=== PATIENT | male | born 2005 | race Caucasian/White ===

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

== ENCOUNTER 2023-03-28 10:48 | Emergency (ER) | payer OTHER, SELFPAY ==
[2023-03-28 11:03] VITALS: BP 124/70; PULSE 85; RESP 16; TEMP 37.2; O2SAT 99
--- NOTE | 2023-03-28 11:26 | ED.NAVMDI ---
HPI - Nausea/Vomiting/Diarrhea General Chief complaint: Nausea/Vomiting/Diarrhea Stated complaint: throwing up,cough Time Seen by Provider: 03/28/23 11:21 Source: patient Mode of arrival: ambulatory Limitations: no limitations History of Present Illness HPI Narrative: Patient presents today complaining of vomiting since 12/29 this morning. States he has had 13-15 episodes of vomiting since this morning. States he has tried to eat and drink between each vomiting episode. Last episode was 1 hour prior to arrival. He has also had 1 episode of diarrhea. Denies known sick contacts, fever. Reports associated symptoms include dull epigastric pain and sweats. Related Data Home Medications Medication Instructions Recorded Confirmed cetirizine 10 mg tablet 10 mg PO DAILY 01/31/20 03/28/23 citalopram 40 mg tablet 40 mg PO DAILY 01/31/20 03/28/23 bhepqd-ekkviqsa-hhdhknh 3 cap PO DIRECTED 01/31/20 03/28/23 6,000-19,000-30,000 unit capsule,delayed rel (Creon) clonidine HCl 0.1 mg tablet 0.1 mg PO BID 10/27/22 03/28/23 elexacaftor 100 mg-tezacaf 1 ea PO QHS 10/27/22 03/28/23 50mg-ivacaf 75mg(d)/ivacaf 150mg(n) tablets (Trikafta) famotidine 20 mg tablet 20 mg PO DAILY 10/27/22 03/28/23 trazodone 100 mg tablet 200 mg PO HS PRN Insomnia 10/27/22 03/28/23 Allergies Allergy/AdvReac Type Severity Reaction Status Date / Time Penicillins Allergy Mild HIVES Verified 10/27/22 11:43 Sulfa (Sulfonamide Allergy Mild HIVES Verified 10/27/22 11:43 Antibiotics) AMOXICILLIN TRIHYDRATE Allergy Mild HIVES Uncoded 08/19/21 11:44 POTASSIUM CLAVULANATE Allergy Mild HIVES Uncoded 08/19/21 11:44 Review of Systems Review of Systems: CONSTITUTIONAL: Denies body aches, fever, chills, or sweats. EYES: Denies visual changes, redness, or discharge. ENT: Denies rhinorrhea, congestion, sore throat, or otalgia. CARDIOVASCULAR: Denies chest pain, palpitations, or edema. RESPIRATORY: Denies cough or dyspnea. GASTROINTESTINAL: Denies abdominal pain. + nausea, vomiting, diarrhea GENITOURINARY: Denies dysuria or hematuria. SKIN: Denies rash, itching, or wounds. MUSCULOSKELETAL: Denies back pain, joint pain, or myalgia. NEUROLOGIC: Denies headache, numbness, tingling, or weakness. PSYCH: Denies depression or anxiety. [facility] Past Medical History Medical History (Updated 03/28/23 @ 12:16 by Radha Richardson, SAMREEN, ) Anxiety and depression Cystic fibrosis Surgical History Surgical History Hx of sinus surgery Family History Family History Grandparent Heart disease Social History Social History Gender identity (if verbalized by the patient): Male Comments At time of signature, I have reviewed and agree with nursing past medical, surgical, social and family history unless otherwise noted. Please see nursing chart for further information. There is no relevant family history pertinent to the presenting complaint Exam Narrative: GENERAL: Well-appearing, well-nourished, and in no acute distress. HEAD: Normocephalic, atraumatic. EYES: EOMI. No redness or drainage. Conjunctivae normal. ENT: Mucous membranes pink and moist. NECK: Normal AROM. CHEST: No respiratory distress. Slight expiratory wheeze to the left upper and lower lobes, otherwise clear HEART: Regular rate and rhythm. No murmur appreciated. Normal peripheral pulses. ABDOMEN: Soft, nontender, nondistended, normal active bowel sounds. MUSCULOSKELETAL: No bony tenderness. EXTREMITIES: Normal range of motion. No edema. SKIN: Warm, dry, no rash. Capillary refill normal. Normal skin turgor. NEURO: No focal deficits. Alert and oriented x3. Gait steady. PSYCH: Normal affect. No signs of depression or anxiety. Course Course Emergency Course: 1213- Patient feeling better after Zo
[2023-03-28] MEDS: ONDANSETRON HCL ODT 4 MG TABLET 8 MG SUBLINGUAL (11:28)
== END 2023-03-28 12:20 | disposition home or self-care (01) ==
PROVIDERS: Emergency Provider Nurse Practitioner; PCP Pediatrics
DX: R11.2 Nausea with vomiting, unspecified (principal); R19.7 Diarrhea, unspecified; E84.9 Cystic fibrosis, unspecified; F41.9 Anxiety disorder, unspecified; F32.A Depression, unspecified
CPT/HCPCS: 99213; A9270; G0463

== ENCOUNTER 2023-06-12 13:28 | Emergency (ER) | payer OTHER, SELFPAY ==
--- NOTE | ~2023-06-12 | XR_ITS ---
EXAMINATION: XR chest 2V 06/12/2023 13:57 INDICATION: Cough. Cystic fibrosis. Chest pain. PROCEDURE: 2 view chest COMPARISON: 01/31/2020 FINDINGS: The lungs are clear. The cardiomediastinal silhouette is within normal limits. There are no pleural effusions. There is no pneumothorax suspected. IMPRESSION: 1: NO ACUTE CARDIOPULMONARY DISEASE. Reviewed, dictated and finalized at location B. MARKETING INTERN
[2023-06-12 13:35] VITALS: BP 143/56; PULSE 87; RESP 20; TEMP 36.9; O2SAT 99
--- NOTE | 2023-06-12 13:43 | ECG_ITS ---
Measurements Intervals [place] Rate: 89 P: 58 MS: 120 QRS: 73 QRSD: 94 T: 32 QT: 329 QTc: 402 Interpretive Statements SINUS RHYTHM WITH SINUS ARRHYTHMIA NONSPECIFIC ST & T-WAVE ABNORMALITY COMPARED TO ECG 01/31/2020 17:01:54 SINUS ARRHYTHMIA NOW PRESENT Electronically Signed On 06-16-2023 14:18:57 DRAPERY AND UPHOLSTERY ESTIMATOR by Margarito Noriega M.D.
--- NOTE | 2023-06-12 14:28 | ED.URI ---
HPI - URI/Sore Throat General Chief Complaint: Chest Pain Stated Complaint: Chest Wall Pain Time Seen by Provider: 06/12/23 14:22 Source: patient and RN notes reviewed Mode of arrival: ambulatory Limitations: no limitations History of Present Illness HPI Narrative: 17-year-old male presents with concern for chest pain, shortness of breath, cough. He has history of cystic fibrosis, he has an albuterol inhaler at home but he has not been home to use it. He reports he has been having some runny nose, stuffy nose, scratchy dry throat. Reports nausea and vomiting. He denies known sick contacts. MD elicited complaint: cough and sore throat Related Data Home Medications Medication Instructions Recorded Confirmed cetirizine 10 mg tablet 10 mg PO DAILY 01/31/20 06/12/23 viapxv-kijmviqr-btorohk 3 cap PO DIRECTED 01/31/20 06/12/23 6,000-19,000-30,000 unit capsule,delayed rel (Creon) clonidine HCl 0.1 mg tablet 0.1 mg PO BID 10/27/22 06/12/23 elexacaftor 100 mg-tezacaf 1 ea PO QHS 10/27/22 06/12/23 50mg-ivacaf 75mg(d)/ivacaf 150mg(n) tablets (Trikafta) famotidine 20 mg tablet 20 mg PO DAILY 10/27/22 06/12/23 trazodone 100 mg tablet 200 mg PO HS PRN Insomnia 10/27/22 06/12/23 Allergies Allergy/AdvReac Type Severity Reaction Status Date / Time Penicillins Allergy Mild HIVES Verified 10/27/22 11:43 Sulfa (Sulfonamide Allergy Mild HIVES Verified 10/27/22 11:43 Antibiotics) AMOXICILLIN TRIHYDRATE Allergy Mild HIVES Uncoded 08/19/21 11:44 POTASSIUM CLAVULANATE Allergy Mild HIVES Uncoded 08/19/21 11:44 Review of Systems Review of Systems: CONSTITUTIONAL: Reports malaise, denies fever. EYES: Denies visual changes, redness, or discharge. ENT: Reports rhinorrhea, congestion, dry scratchy throat. Denies sinus pain, otalgia and sore throat. CARDIOVASCULAR: Denies chest pain, palpitations, or edema. RESPIRATORY: Reports cough, chest pain, dyspnea. GASTROINTESTINAL: Denies abdominal pain, nausea, vomiting, diarrhea SKIN: Denies rash or itching. MUSCULOSKELETAL: Denies myalgia. NEUROLOGIC: Reports headache. All systems reviewed & are unremarkable except as noted in HPI and below PMFSH Past Medical History Medical History (Updated 06/12/23 @ 14:47 by Pauline Barney NP) Anxiety and depression Cystic fibrosis Surgical History Surgical History Hx of sinus surgery Family History Family History Grandparent Heart disease Social History Social History Gender identity (if verbalized by the patient): Male Comments At time of signature, agree with nursing past medical, surgical, social and family history. There is no relevant family history pertinent to the presenting complaint Exam Narrative: GENERAL: Well-appearing, well-nourished, and in no acute distress. HEAD: Normocephalic EYES: PERRLA, conjunctivae clear ENT: Nares clear, clear discharge. Mucous membranes moist. TM pearly raymond with sharp light reflex bilaterally; no tragal tenderness. Oropharynx not erythematous without lesions. Tonsils not enlarged and without exudate, no drooling, no hoarseness, no trismus, uvula midline. NECK: Supple. No lymphadenopathy CHEST: Clear to auscultation, breath sounds equal. No wheezing, rhonchi, rales, or stridor. No respiratory distress, speaks in full sentences. Cough noted HEART: Regular rate and rhythm. No murmur heard. SKIN: Warm, dry, no rash. NEURO: Alert and oriented x3. PSYCH: Normal mood and affect Course Course Emergency Course: Patient is aware of diagnosis, understands and agrees to treatment plan. Anticipatory guidance given. Patient agrees to follow-up as directed and is aware of reasons to seek care at the emergency department. Portions of this record may have been created with voice recognition software Level
== END 2023-06-12 14:55 | disposition home or self-care (01) ==
PROVIDERS: Emergency Provider Nurse Practitioner; PCP Pediatrics
DX: J06.9 Acute upper respiratory infection, unspecified (principal); R05.9 Cough, unspecified; F41.9 Anxiety disorder, unspecified; F32.A Depression, unspecified; E84.9 Cystic fibrosis, unspecified
CPT/HCPCS: 71046; 87081; 87880; 93005; 99213; G0463

== ENCOUNTER 2023-08-28 12:15 | Emergency (ER) | payer OTHER, SELFPAY ==
--- NOTE | 2023-08-28 12:18 | ED.URI ---
HPI - URI/Sore Throat General Chief Complaint: Upper Respiratory Infection Stated Complaint: sore throat, strep exposure Time Seen by Provider: 08/28/23 12:17 Source: patient Mode of arrival: ambulatory Limitations: no limitations History of Present Illness HPI Narrative: Ashu is a 17-year-old male patient presenting to the clinic today with complaints of sore throat times 3-4 days. He reports he has had exposure to strep. MD elicited complaint: sore throat and nasal congestion Related Data Home Medications Medication Instructions Recorded Confirmed cetirizine 10 mg tablet 10 mg PO DAILY 01/31/20 06/12/23 rndsyf-ozccccoa-ekzyjjw 3 cap PO DIRECTED 01/31/20 06/12/23 6,000-19,000-30,000 unit capsule,delayed rel (Creon) clonidine HCl 0.1 mg tablet 0.1 mg PO BID 10/27/22 06/12/23 famotidine 20 mg tablet 20 mg PO DAILY 10/27/22 06/12/23 Allergies Allergy/AdvReac Type Severity Reaction Status Date / Time Penicillins Allergy Mild HIVES Verified 08/28/23 12:26 Sulfa (Sulfonamide Allergy Mild HIVES Verified 08/28/23 12:26 Antibiotics) AMOXICILLIN TRIHYDRATE Allergy Mild HIVES Uncoded 08/28/23 12:26 POTASSIUM CLAVULANATE Allergy Mild HIVES Uncoded 08/28/23 12:26 Review of Systems Review of Systems: Pertinent positives per HPI. Patient denies any fever, chills, rash, headache, visual changes, dizziness, cough, shortness of breath, chest pain, palpitations, nausea, vomiting, diarrhea, constipation, abdominal pain, or any urinary issues. [facility] Past Medical History Medical History Anxiety and depression Cystic fibrosis Surgical History Surgical History Hx of sinus surgery Family History Family History Grandparent Heart disease Social History Social History Gender identity (if verbalized by the patient): Male Comments At the time of my signature, I reviewed and agree with the nursing past medical, surgical, social, and family history. There is no relevant family history pertinent to the patient complaint. Exam Narrative: General: Well-developed, well nourished, in no apparent distress Head: Normocephalic, atraumatic Eyes: Pupils equally round and reactive to light bilaterally, EOM intact, sclera and conjunctive clear, no discharge, lids normal Ears: TMs intact and clear, ear canals clear, no drainage, grossly hearing normal. Nose: Nares patent, no discharge, no inflammation, no sinus tenderness. Mouth: Oral pharynx red without lesions or masses, good dentition, MMM. Neck: Supple, trachea midline, mild enlargement of anterior cervical nodes, no thyroid masses or goiter palpable. Cardio: Regular rate and rhythm, s1 and s2 normal, no murmur appreciated. Resp: Clear to auscultation bilaterally, no rhonchi, rales, wheezing or rubs Course Course Emergency Course: Portions of this record may have been created with voice recognition software. Level of Care: Express Care Visit Vital Signs Vital signs: Vital signs reviewed MDM - URI/Sore Throat MDM Narrative Medical decision making narrative: At the time of visit patient is resting comfortably on the exam table. Patient appears to be nontoxic. Labs: Strep test was positive in the clinic today. Plan: I suspect patient has strep pharyngitis. Prescription for azithromycin was sent to the pharmacy. Supportive measures were discussed with the patient and they voiced understanding discharge instructions and agrees to treatment plan. Return precautions reviewed Differential Diagnosis Differential diagnosis: Likely upper respiratory infection, otitis media, sinusitis, viral infection, bronchitis, influenza, pharyngitis and other (COVID) Discharge Plan Discharge Clinical Impression: Acute streptococc
[2023-08-28 12:28] VITALS: BP 104/56; PULSE 115; RESP 16; TEMP 37.2; O2SAT 99
== END 2023-08-28 12:46 | disposition home or self-care (01) ==
PROVIDERS: Emergency Provider Nurse Practitioner Family; PCP Pediatrics Adolescent Medicine
DX: J02.0 Streptococcal pharyngitis (principal); E84.9 Cystic fibrosis, unspecified
CPT/HCPCS: 87880; 99213; G0463

== ENCOUNTER 2024-03-25 09:01 | Emergency (ER) | payer OTHER, SELFPAY ==
[2024-03-25 09:11] VITALS: BP 128/84; PULSE 114; RESP 16; TEMP 36.9; O2SAT 99
--- NOTE | 2024-03-25 09:22 | ED.EAR ---
HPI - Ear Problem General Chief complaint: Ear Stated complaint: right ear pain,dizzy,decreased hearing Time Seen by Provider: 03/25/24 09:22 Source: patient Mode of arrival: ambulatory Limitations: no limitations History of Present Illness HPI Narrative: 18-year-old male presents with complaint runny nose, nasal congestion, right ear pain for 3-4 days. Afebrile. Take Zyrtec daily. Denies sinus pressure. No coughing. All systems reviewed and negative except as noted above. Related Data Home Medications Medication Instructions Recorded Confirmed cetirizine 10 mg tablet 10 mg PO DAILY 01/31/20 06/12/23 cxltlx-ohqequcs-fjwglal 3 cap PO DIRECTED 01/31/20 06/12/23 6,000-19,000-30,000 unit capsule,delayed rel (Creon) clonidine HCl 0.1 mg tablet 0.1 mg PO BID 10/27/22 06/12/23 famotidine 20 mg tablet 20 mg PO DAILY 10/27/22 06/12/23 Allergies Allergy/AdvReac Type Severity Reaction Status Date / Time Penicillins Allergy Mild HIVES Verified 08/28/23 12:26 Sulfa (Sulfonamide Allergy Mild HIVES Verified 08/28/23 12:26 Antibiotics) AMOXICILLIN TRIHYDRATE Allergy Mild HIVES Uncoded 08/28/23 12:26 POTASSIUM CLAVULANATE Allergy Mild HIVES Uncoded 08/28/23 12:26 Review of Systems Review of Systems: CONSTITUTIONAL: Denies fever, chills, or sweats. EYES: Denies visual changes, redness, or discharge. ENT: Reports rhinorrhea, congestion, right ear pain. Denies sore throat CARDIOVASCULAR: Denies chest pain, palpitations, or edema. RESPIRATORY: Denies cough or dyspnea. GASTROINTESTINAL: Denies abdominal pain, nausea, vomiting, or diarrhea. GENITOURINARY: Denies dysuria or hematuria. SKIN: Denies rash or itching. MUSCULOSKELETAL: Denies back pain, joint pain, or myalgia. NEUROLOGIC: Denies headache, numbness, or weakness. PSYCHIATRIC: Denies anxiety or depression. All other systems reviewed are negative, except as documented in HPI. [facility] Past Medical History Medical History (Updated 03/25/24 @ 09:32 by Peace Chaudhry NP) Anxiety and depression Cystic fibrosis Surgical History Surgical History Hx of sinus surgery Family History Family History Grandparent Heart disease Social History Social History Gender identity (if verbalized by the patient): Male Comments At time of signature, agree with nursing past medical, surgical, social and family history. There is no relevant family history pertinent to the presenting complaint. Exam Narrative: GENERAL: This is a well-nourished, well-developed patient, in no apparent distress. HEAD: normocephalic, atraumatic. EYES: PERRL. Sclera clear/white. Vision is grossly intact. EARS: External ears normal, auditory canals clear and without drainage, erythema, bulging, fluid to right TM. Left TM is normal. No perforation bilaterally. Hearing grossly intact. NOSE: External nose normal with clear nasal drainage, mild congestion, mild erythema to bilateral nares THROAT: Mucous membranes moist, clear postnasal drainage NECK: Neck supple, non-tender without lymphadenopathy, masses or thyromegaly. CARDIOVASCULAR: Regular rate and rhythm without murmurs, gallops, or rubs. RESPIRATORY: Clear to auscultation. Breath sounds equal bilaterally. No wheezes, rales, or rhonchi. SKIN: warm, Dry, intact with no suspicious lesions or rash, good texture and turgor. NEURO: awake, alert, and oriented to person, place and time. There were no obvious focal neurologic abnormalities. EXTREMITIES: No joint tenderness, effusion, or edema noted. Course Course Level of Care: Express Care Visit Vital Signs Vital signs: Vital Signs Temperature 36.9 C 03/25/24 09:11 Pulse Rate 114 H 03/25/24 09:11 Respiratory Rate 16 03/25/24 09:11 Blood Pressure 128/84 03/25/24 09:11 Pulse O
== END 2024-03-25 09:37 | disposition home or self-care (01) ==
PROVIDERS: Emergency Provider Nurse Practitioner Family; PCP Pediatrics Adolescent Medicine
DX: H66.91 Otitis media, unspecified, right ear (principal); J01.90 Acute sinusitis, unspecified; E84.9 Cystic fibrosis, unspecified
CPT/HCPCS: 99213; G0463

== ENCOUNTER 2024-10-06 17:52 | Emergency (ER) | payer OTHER, SELFPAY ==
[2024-10-06 18:01] VITALS: BP 131/77; PULSE 111; RESP 18; TEMP 36.8; O2SAT 99
--- NOTE | 2024-10-06 18:15 | ED.URI ---
HPI - URI/Sore Throat General Chief Complaint: Upper Respiratory Infection Stated Complaint: Cough Time Seen by Provider: 10/06/24 18:20 Source: patient, RN notes reviewed and old records reviewed Mode of arrival: ambulatory Limitations: no limitations History of Present Illness HPI Narrative: 18-year-old male presents to the [facility] with complaints of a cough for 2-3 weeks. States that he did see his cystic fibrosis doctors 1 month ago. Reports that he had did column and was told that it was ?just allergies. ? Patient comes in today with productive cough Related Data Home Medications ?Medication ?Instructions ?Recorded ?Confirmed ?Last Taken ?Type cetirizine 10 mg tablet 10 mg PO DAILY 01/31/20 03/25/24 Unknown History orwvyz-cvetdaoh-lopccok 3 cap PO DIRECTED 01/31/20 03/25/24 Unknown History 6,000-19,000-30,000 unit capsule,delayed rel (Creon) clonidine HCl 0.1 mg tablet 0.1 mg PO BID 10/27/22 03/25/24 Unknown History famotidine 20 mg tablet 20 mg PO DAILY 10/27/22 03/25/24 Unknown History elexacaftor 100 mg-tezacaf See Rx Instructions .Route .COMPLEX 03/25/24 03/25/24 Unknown History 50mg-ivacaf 75mg(d)/ivacaf 150mg(n) tablets (Trikafta) Allergies Allergy/AdvReac Type Severity Reaction Status Date / Time Penicillins Allergy Mild HIVES Verified 10/06/24 18:28 Sulfa (Sulfonamide Allergy Mild HIVES Verified 10/06/24 18:28 Antibiotics) AMOXICILLIN TRIHYDRATE Allergy Mild HIVES Uncoded 10/06/24 18:28 POTASSIUM CLAVULANATE Allergy Mild HIVES Uncoded 10/06/24 18:28 Review of Systems Review of Systems: All systems reviewed & are unremarkable except as noted in HPI and below Constitutional: Constitutional: Reports no additional constitutional complaints ENT: Reports system reviewed and no additional complaints, except as documented Cardiovascular: Cardiovascular: Reports no additional cardiovascular complaints, Denies chest pain and Denies dyspnea Respiratory: Respiratory: Reports as per HPI, Denies chest congestion, Reports cough, Denies hemoptysis, Reports excessive phlegm production and Denies dyspnea Musculoskeletal: Musculoskeletal: Reports no additional musculoskeletal complaints Integumentary/Breasts: Skin/Breast: Reports system reviewed and no additional complaints, except as docu [facility] Past Medical History Medical History (Updated 10/06/24 @ 19:35 by Pauline Luna APRN) Anxiety and depression Cystic fibrosis Surgical History Surgical History Hx of sinus surgery Family History Family History Grandparent Heart disease Social History Social History Gender identity (if verbalized by the patient): Male Comments At the time of my signature, I reviewed and agree with the nursing past medical, surgical, social, and family history. There is no relevant family history pertinent to the patient complaint. Exam Const: General: cooperative, comfortable, no acute distress, well developed, alert, poor hygiene and well nourished Nutritional Appearance: well nourished Orientation/consciousness: patient oriented x3 Limitations: no limitations HENMT: Head: normal to inspection Eyes: General: appearance normal, both eyes and all related structures Alignment and Position: alignment normal Neck: Neck: normal visual inspection, full ROM, no lymphadenopathy and no meningeal signs Chest: Chest palpation & inspection: normal inspection of the chest Resp: Effort & Inspection: normal respiratory effort and able to speak in complete sentences Auscultation: clear to auscultation bilaterally, no crackles, no rales, no rhonchi, no wheezes and diminished lung sounds bilateral in the lower lung ramírez Cardio: Rate: regular rate Skin: General skin exam: normal color and no rashes or lesions noted Neuro: General: patient oriented x3, gait normal, moves all extremities and no meningeal signs Cognition (Neuro): normal cognition Speech: normal speech Gait exam (Neuro): Normal gait present Extrem: General: normal to inspection, full ROM, capillary refill normal and normal gait Psych: Appearance: grossly normal and well kempt Mental Status: mental status grossly normal Speech and movement: Normal speech and movement present and Clear speech present Affect: normal affect Attitude: cooperative Course Course Level of Care: Express Care Visit Vital Signs Vital signs: Vital Signs Temperature 98.3 F 10/06/24 18:01 Pulse Rate 111 H 10/06/24 18:01 Respiratory Rate 18 10/06/24 18:01 Blood Pressure 131/77 10/06/24 18:01 Pulse Oximetry 99 10/06/24 18:01 Oxygen Delivery Room Air 10/06/24 18:01 Temperature 98.3 F 10/06/24 18:01 Pulse Rate 111 H 10/06/24 18:01 Respiratory Rate 18 10/06/24 18:01 Blood Pressure 131/77 10/06/24 18:01 Pulse Oximetry 99 10/06/24 18:20 Oxygen Delivery Room Air 10/06/24 18:20 Reviewed MDM - URI/Sore Throat MDM Narrative Medical decision making narrative: Patient sitting exam room. Nontoxic, vitals stable Patient with through 2-3 week history of productive cough, history of cystic fibrosis, will cover with antibiotic Encourage patient strongly to follow up with primary care provider or cystic fibrosis provider for further evaluation Discharge instructions reviewed with patient, as well as provided in writing per nursing staff. The instructions also include specific and strict return/GO TO THE ER as well as f/u information. All questions have been answered, and the patient deny any further questions with discharge and discharge plan. Some parts of this dictation were generated by voice recognition software and may contain typographical and/or grammatical inaccuracies. Differential Diagnosis Differential diagnosis: Likely upper respiratory infection, otitis media, sinusitis, viral infection, bronchitis and influenza Critical Care Time Critical Care Time Critical Care Time: No Discharge Plan Discharge Clinical Impression: Hx of cystic fibrosis Cough Qualifiers: Cough type: acute Qualified Code(s): R05.1 - Acute cough Patient Disposition: Home Condition: Stable Instructions: Antibiotic Form, Acute Cough (ED) Additional Instructions: Follow-up with your cystic fibrosis doctor this week Take antibiotic as prescribed It is recommended you continue to use allergy medication for the postnasal drainage For worsening symptoms please go to the ER Patient Language: [place] Prescriptions: New azithromycin 250 mg tablet See Rx Instructions .ROUTE .COMPLEX Qty: 6 0RF Rx Instructions: take 500 mg today (day 1), then 250 mg for 4 days (days 2-5) No Action cetirizine 10 mg Tablet 10 mg PO DAILY Creon 6,000-19,000 -30,000 unit Capsule,Delayed Release(Dr/Ec) 3 cap PO DIRECTED azithromycin 250 mg tablet See Rx Instructions .ROUTE .COMPLEX Qty: 6 0RF Rx Instructions: For 250 mg dose pack: take 500 mg today (day 1), then 250 mg for 4 days (days 2-5) fluticasone propionate [Flonase Allergy Relief] 50 mcg/actuation spray,suspension 1 spray intranasal BID Qty: 16 0RF Rx Instructions: administer into each nostril Trikafta 100-50-75 mg(d) /150 mg (n) tablets, sequential See Rx Instructions .ROUTE .COMPLEX Rx Instructions: Rx clonidine HCl 0.1 mg Tablet 0.1 mg PO BID famotidine 20 mg Tablet 20 mg PO DAILY Follow-up/Referrals: Ariadna,Aneta Bartlett MD [Primary Care Provider] - 2 Weeks ([facility] Time of Disposition: 18:29
[2024-10-06 18:20] VITALS: O2SAT 99
== END 2024-10-06 18:33 | disposition home or self-care (01) ==
PROVIDERS: Emergency Provider Nurse Practitioner; PCP Pediatrics Adolescent Medicine
DX: E84.9 Cystic fibrosis, unspecified (principal); R05.1 Acute cough
CPT/HCPCS: 99213; G0463

== ENCOUNTER 2025-02-19 17:22 | Emergency (ER) | payer OTHER, SELFPAY ==
[2025-02-19 17:32] VITALS: BP 105/71; PULSE 102; RESP 20; TEMP 36.8; O2SAT 100
--- NOTE | 2025-02-19 17:39 | ED.EAR ---
HPI - Ear Problem General Chief complaint: Ear Stated complaint: right ear pain/neck pain Time Seen by Provider: 02/19/25 17:45 Source: patient and RN notes reviewed Mode of arrival: ambulatory Limitations: no limitations History of Present Illness HPI Narrative: 19-year-old male presents with concern for pain starts below the right ear and the right jaw and radiates towards the ear. He denies hearing changes or drainage from the ear. He denies cold symptoms. He denies redness, swelling, warmth. Denies malaise or fever. Denies dental pain or problems swelling. Reports occasional jaw clicking. MD Complaint: ear pain Related Data Home Medications ?Medication ?Instructions ?Recorded ?Confirmed ?Last Taken ?Type cetirizine 10 mg tablet 10 mg PO DAILY 01/31/20 03/25/24 Unknown History mxdzoy-phzybegz-iorrkrx 3 cap PO DIRECTED 01/31/20 03/25/24 Unknown History 6,000-19,000-30,000 unit capsule,delayed rel (Creon) clonidine HCl 0.1 mg tablet 0.1 mg PO BID 10/27/22 03/25/24 Unknown History famotidine 20 mg tablet 20 mg PO DAILY 10/27/22 03/25/24 Unknown History elexacaftor 100 mg-tezacaf See Rx Instructions .Route .COMPLEX 03/25/24 03/25/24 Unknown History 50mg-ivacaf 75mg(d)/ivacaf 150mg(n) tablets (Trikafta) dornase julianne 1 mg/mL solution for mg inhalation 02/19/25 Unknown History inhalation (Pulmozyme) Allergies Allergy/AdvReac Type Severity Reaction Status Date / Time Penicillins Allergy Mild HIVES Verified 02/19/25 17:33 Sulfa (Sulfonamide Allergy Mild HIVES Verified 02/19/25 17:33 Antibiotics) amoxicillin (From Augmentin) Allergy rash Verified 02/19/25 17:33 clavulanic acid (From Allergy rash Verified 02/19/25 17:33 Augmentin) AMOXICILLIN TRIHYDRATE Allergy Mild HIVES Uncoded 02/19/25 17:33 POTASSIUM CLAVULANATE Allergy Mild HIVES Uncoded 02/19/25 17:33 Review of Systems Review of Systems: CONSTITUTIONAL: Denies malaise, chills, sweats, or fever. EYES: Denies visual changes, redness, or discharge. ENT: Denies rhinorrhea, congestion, sinus pain, and sore throat. Reports right jaw pain, below the jaw pain radiating towards the right ear CARDIOVASCULAR: Denies chest pain, palpitations, or edema. RESPIRATORY: Denies cough. Denies dyspnea. GASTROINTESTINAL: Denies abdominal pain, nausea, vomiting, diarrhea SKIN: Denies rash or itching. MUSCULOSKELETAL: Denies myalgia. NEUROLOGIC: Denies headache. All systems reviewed & are unremarkable except as noted in HPI and below PMFSH Past Medical History Medical History (Updated 02/19/25 @ 17:44 by Pauline Barney NP) Anxiety and depression Cystic fibrosis Surgical History Surgical History Hx of sinus surgery Family History Family History Grandparent Heart disease Social History Social History Gender identity (if verbalized by the patient): Male Comments At time of signature, agree with nursing past medical, surgical, social and family history. There is no relevant family history pertinent to the presenting complaint Exam Narrative: GENERAL: Well-appearing, well-nourished, and in no acute distress. HEAD: Normocephalic EYES: PERRLA, conjunctivae clear ENT: Nares clear, no discharge. Mucous membranes moist. TM pearly raymond with sharp light reflex bilaterally; no tragal tenderness, EAC unremarkable. No post or pre-auricular erythema, induration, or warmth noted. Oropharynx not erythematous without lesions. Tonsils not enlarged and without exudate, no drooling, no hoarseness, no trismus, uvula midline. TMJ tenderness NECK: Supple. No lymphadenopathy CHEST: Clear to auscultation, breath sounds equal. No wheezing, rhonchi, rales, or stridor. No respiratory distress, speaks in full sentences. HEART: Regular rate and rhythm. No murmur heard. SKIN: Warm, dry, no rash. NEURO: Alert and oriented x3. PSYCH: Normal mood and affect Course Course Emergency Course: Patient is aware of diagnosis, understands and agrees to treatment plan. Anticipatory guidance given. Patient agrees to follow-up as directed and is aware of reasons to seek care at the emergency department. Portions of this record may have been created with voice recognition software Level of Care: Express Care Visit Vital Signs Vital signs: Vital Signs Temperature 98.3 F 02/19/25 17:32 Pulse Rate 102 H 02/19/25 17:32 Respiratory Rate 20 02/19/25 17:32 Blood Pressure 105/71 02/19/25 17:32 Pulse Oximetry 100 02/19/25 17:32 Oxygen Delivery Room Air 02/19/25 17:32 Temperature 98.3 F 02/19/25 17:32 Pulse Rate 102 H 02/19/25 17:32 Respiratory Rate 20 02/19/25 17:32 Blood Pressure 105/71 02/19/25 17:32 Pulse Oximetry 100 02/19/25 17:32 Oxygen Delivery Room Air 02/19/25 17:32 Reviewed. Medical Decision Making MDM Narrative Medical decision making narrative: I evaluated this in the [facility] care. History is obtained from patient who is an independent historian and physical exam was performed.? Available medical records were reviewed. ? Exam findings and relevant testing show no acute concerns or changes; patient is non-toxic appearing and is in no distress. Differential diagnosis considered: Walden virus, strep pharyngitis, allergic rhinitis, upper respiratory tract infection, sinusitis, rhinosinusitis, nasopharyngitis. viral pharyngitis, otitis media, otitis externa, otitis effusion, pre/post auricular cellulitis, mastoiditis, cerumen impaction, foreign body. Exam findings show no acute concerns or changes; patient is non-toxic appearing and is in no distress. Patient is appropriate for outpatient treatment and follow-up. ? Differential diagnosis and treatment plan were discussed with the patient. Patient agrees with discussion and after shared medical decision making agrees with plan of care. All questions were answered to the patient's satisfaction. Patient is appropriate for outpatient treatment and follow-up. Vital Signs Vital Signs: Vital Signs Temperature 98.3 F 02/19/25 17:32 Pulse Rate 102 H 02/19/25 17:32 Respiratory Rate 02/19/25 17:32 Blood Pressure 105/71 02/19/25 17:32 Pulse Oximetry 100 02/19/25 17:32 Oxygen Delivery Room Air 02/19/25 17:32 Temperature 98.3 F 02/19/25 17:32 Pulse Rate 102 H 02/19/25 17:32 Respiratory Rate 20 02/19/25 17:32 Blood Pressure 105/71 02/19/25 17:32 Pulse Oximetry 100 02/19/25 17:32 Oxygen Delivery Room Air 02/19/25 17:32 Critical Care Time Critical Care Time Critical Care Time: No Discharge Plan Discharge Clinical Impression: Jaw pain Patient Disposition: Home Condition: Stable Instructions: Temporomandibular Disorder (ED) Additional Instructions: -Apply moist heat to affected side first thing in the morning and before meals for 5-10 minutes. -After applying heat massage the painful area for 2-3 minutes -After massage. apply ice or cool compress for 5-10 minutes. Avoid chewy foods. chewing gum, chewing ice, yawning, and chewing non-food items. Take small bites Take prednisone as directed You may also take Tylenol. Follow-up with your dentist or PCP for further evaluation. If you have any urgent concerns, please go to the ER. Patient Language: [place]ian Prescriptions: New prednisone 20 mg tablet 40 mg PO DAILY 5 Days Qty: 10 0RF No Action cetirizine 10 mg Tablet 10 mg PO DAILY Creon 6,000-19,000 -30,000 unit Capsule,Delayed Release(Dr/Ec) 3 cap PO DIRECTED Pulmozyme 1 mg/mL solution INHALATION fluticasone propionate [Flonase Allergy Relief] 50 mcg/actuation spray,suspension 1 spray intranasal BID Qty: 16 0RF Rx Instructions: administer into each nostril Trikafta 100-50-75 mg(d) /150 mg (n) tablets, sequential See Rx Instructions .ROUTE .COMPLEX Rx Instructions: Rx clonidine HCl 0.1 mg Tablet 0.1 mg PO BID famotidine 20 mg Tablet 20 mg PO DAILY Follow-up/Referrals: Salomon,MD Anmol [Primary Care Provider] Time of Disposition: 17:45
== END 2025-02-19 17:50 | disposition home or self-care (01) ==
PROVIDERS: Emergency Provider Nurse Practitioner; PCP Pediatrics
DX: R68.84 Jaw pain (principal); E84.9 Cystic fibrosis, unspecified
CPT/HCPCS: 99213; G0463